=== PATIENT | male | born 1950 | race Caucasian/White ===

== ENCOUNTER 2017-01-06 19:42 | Inpatient (IN) ==
[2017-01-06] MEDS ORDERED: Nitroglycerin 1,000 MCG/10 ML VIAL IV ONE (20:12)
[2017-01-06] MEDS ORDERED: *HR* FentaNYL (PF) 250 MCG/5 ML VIAL ONE (20:12)
[2017-01-06] MEDS ORDERED: 0.9 % Sodium Chloride 1,000 ML ONE ×2 (20:12→20:19)
[2017-01-06] MEDS ORDERED: *HR* Midazolam HCl 5 MG/5 ML VIAL IVP ONE (20:12)
[2017-01-06] MEDS ORDERED: *HR* Heparin 10,000 UNIT/10 ML VIAL ONE (20:12)
[2017-01-06] MEDS ORDERED: Heparin 1,000 UNITS/500 mL NS 500 ML ONE ×2 (20:12→21:10)
[2017-01-06] MEDS: Amiodarone Premix 360 MG/200 ML BAG IVC ONE (20:21)
[2017-01-06] MEDS: Norepinephrine 4 MG in D5% in Water 250 ML IVC SCH (20:27)
--- NOTE | 2017-01-06 20:42 | Emergency Department Note ---
Disposition Clinical Impression: Cardiac arrest ST elevation myocardial infarction (STEMI) Qualifiers: Involved coronary artery: unspecified coronary artery Qualified Code(s): I21.3 - ST elevation (STEMI) myocardial infarction of unspecified site Disposition: Admitted As Inpatient Condition: Critical Time of Disposition: 22:48 CPR HPI - General Stated Complaint: Felling Sick /CP x 3 days Time Seen by Provider: 01/06/17 20:05 Source: patient Limitations: no limitations Nursing Notes Reviewed: Yes Vital Signs Reviewed: Yes - History of Present Illness HPI Narrative: History of present illness obtained from nursing note as below: Stemi on 12 lead. Patient became unresponsive once placed in bed. Prior to this, he reported no cardiac history. His chest pain began 3 days ago and became 10/10 with jaw numbness while driving to this facility. - Related Data Allergies Allergy/AdvReac Type Severity Reaction Status Date / Time Penicillins Allergy Hives Verified 01/06/17 19:56 Limitations: ROS unobtainable due to patients medical condition CPR PMH - Past Medical History Medical history: Reports: other - Social History Smoking Status: Unknown if ever smoked Physical Exam - General Limitations: other (Patient in cardiac arrest.) Course Course Narrative: Patient cool, diaphoretic, in V. fib. CPR started in cardiac arrest code initiated per ACLS protocol. Patient wondered and out of V. fib total of 4 defibrillator shocks, 2 rounds of epinephrine, 1 round of lidocaine, 1 round of amiodarone, 2 L normal saline under pressure bag. He was intubated with etomidate and succinylcholine and re- paralyzed with rocuronium. A right insula jugular triple-lumen central venous catheter was placed under ultrasound guidance. Patient left the [employer] with a lidocaine drip. Vital Signs Temperature 0 F L 01/06/17 20:04 Pulse Rate 0 01/06/17 20:04 Respiratory Rate 0 01/06/17 20:04 Blood Pressure 0/0 01/06/17 20:04 O2 Sat by Pulse Oximetry 0 01/06/17 20:04 Temperature 97.7 F 01/07/17 00:00 Pulse Rate 90 01/07/17 02:00 Respiratory Rate 18 01/07/17 02:00 Blood Pressure 98/63 01/07/17 02:00 O2 Sat by Pulse Oximetry 97 01/07/17 02:00 Oxygen Delivery Oxygen Delivery Room Air Procedures - Central Line Placement Right IJ Central Line Inserted*: Yes Central Line Catheter Replacement*: No Central Line Insertion: emergent Consent Obtained: verbal consent (Patient in code, no family bedside.) Patient Placed on Monitor/Pulse Ox: Yes During the Procedure: clinician is wearing sterile gloves, cap, mask,& gown during insertion, sterile field and sterile technique are maintained Central Line Prep: Chlorhexidine scrub Prep the Procedure Site: apply chloraprep to the skin using a back and forth scrubbing motion Amount of anesthesia used (mL): 0 Ultrasound Used for Placement: Yes Central Line Lumen Inserted: triple Post Procedure: sutured in place, good blood return, all ports aspirated, flushed, capped, sterile dressing applied, guide wire removed and visualized Post Procedure X-Ray: other (Patient rushed to molder labels; no post-placement imaging.) Patient Tolerated Procedure: well, no complications Complications: none Cardiac Arrest/CPR - Lab Data Lab results reviewed: Yes I reviewed the patient's lab results. Result diagrams: 01/06/17 21:14 01/06/17 21:14 - EKG Data EKG attestation: Yes I reviewed and interpreted this EKG. EKG results narrative: EKG dated 01/06/[address] elevations in inferiolateral leads as well as septal leads. Tachycardic with a rate of 128. EKG was not compared to previous due to the acuity of the patient's condition. Critical Care Time Critical Care Time: Yes Total Critical Care Time: 60 Attestation: Critical care performed: Time is exclusive of separately billable procedures. Time includes: direct patient care, patient reassessment, coordination of patient care, interpretation of data (laboratory data, radiology data, and respiratory data), review of patient's medical records, medical consultation and documentation of patient care. Procedures included in critical care time: CPR Procedures excluded from critical care time: Endotracheal intubation, right IJ central line placement Attestation Statement - Attestation Attestation: IValerio MD, personally evaluated this patient and discussed their management with the resident physician. I reviewed the resident's note and agree with the documented findings, medical decision making, and plan of care. A 66-year-old male presented to the emergency Department by private vehicle with a complaint of just feeling sick. In triage he then reported that he has been having chest pains for the past 3 days and is now having severe substernal chest pain which started about 15 minutes prior to arrival. He denies any radiation of the pain but complains that his left jaw feels numb. He admits to shortness of breath. Some mild diaphoresis. He denies any prior history of an OR or any heart problems in the past. Patient had an EKG in triage which showed a STEMI with extensive infarction. There is inferior, Cipro, and anterolateral ST elevations. I will directly back to the emergency department and while we were initiating an IV and hooking him up to the monitor patient became unresponsive and went into ventricular fibrillation. CPR initiated immediately. Patient defibrillated multiple times. He received IV epinephrine. He also received IV lidocaine and IV amiodarone and was placed on an amiodarone drip. Patient did regain a pulse after multiple defibrillations. He was placed on norepinephrine infusion. Patient received etomidate and succinylcholine and was intubated by then physician Dr. Sheets. A right IJ central line was placed by resident physician Dr. Manzano. The waste collection driver, Dr. Marin, was present during the cardiac arrest. A STEMI alert had been called as soon as patient was brought back into the main ED before he arrested. After resuscitation and stabilization the patient was taken directly to the cardiac catheter lab by Dr. Marin. On physical examination on arrival prior to cardiac arrest patient is a well- developed well-nourished male in moderate distress. He is alert and oriented but appears very anxious. He is pale and mildly clammy. Her equal bilaterally. Heart regular rate and rhythm. Abdomen soft with normal bowel sounds.
[2017-01-06] MEDS ORDERED: Tirofiban 12.5 MG/250ML 12.5 MG/250 ML BAG ONE (20:48)
[2017-01-06] MEDS ORDERED: Amiodarone Premix 150 MG/100 ML BAG IVPB ONE (21:07)
--- NOTE | 2017-01-06 21:13 | Emergency Department Note ---
Disposition Clinical Impression: Cardiac arrest ST elevation myocardial infarction (STEMI) Qualifiers: Involved coronary artery: unspecified coronary artery Qualified Code(s): I21.3 - ST elevation (STEMI) myocardial infarction of unspecified site Disposition: Admitted As Inpatient Condition: Critical General Adult HPI - General Chief complaint: ED Chest Pain Stated complaint: Felling Sick /CP x 3 days Time Seen by Provider: 01/06/17 20:05 Source: patient Limitations: no limitations - History of Present Illness HPI Narrative: This note is being done for procedure purpose only. Pain Scale: 0 - Related Data Allergies Allergy/AdvReac Type Severity Reaction Status Date / Time Penicillins Allergy Hives Verified 01/06/17 19:56 Past Medical History - Past Medical History Medical history: Reports: other - Social History Smoking Status: Unknown if ever smoked Physical Exam - General Limitations: no limitations General appearance: alert Course Vital Signs Temperature 0 F L 01/06/17 20:04 Pulse Rate 0 01/06/17 20:04 Respiratory Rate 0 01/06/17 20:04 Blood Pressure 0/0 01/06/17 20:04 O2 Sat by Pulse Oximetry 0 01/06/17 20:04 Temperature 97.7 F 01/07/17 00:00 Pulse Rate 90 01/07/17 02:00 Respiratory Rate 18 01/07/17 02:00 Blood Pressure 98/63 01/07/17 02:00 O2 Sat by Pulse Oximetry 97 01/07/17 02:00 Oxygen Delivery Oxygen Delivery Room Air Procedures - Intubation Time out performed: No sedative: Etomidate Mg Given: 20 paralytic: Succinylcholine Mg Given: 100 Laryngoscope: fiber optic video scope ET Tube Size: 7.5 ET Tube Uncuffed: Yes Tube Secured Depth (cm): 24 Tube Secured Location: lips Tube Placement Confirmation: visualized tube passing through cords, equal breath sounds bilaterally, no breath sounds over epigastrium, confirmation by capnometry Patient Tolerated Procedure: well, no complications Intubation Complications: difficult intubation (Very anterior cords needed to use video laryngoscopy.) Medical Decision Making - MDM Narrative Medical decision making narrative: This note was being done for intubation procedure only. - Lab Data Result diagrams: 01/06/17 21:14 01/06/17 21:14 Attestation Statement - Attestation Attestation: IValerio MD, personally evaluated this patient and discussed their management with the resident physician. I reviewed the resident's note and agree with the documented findings, medical decision making, and plan of care. A 66-year-old male presented to the emergency Department by private vehicle with a complaint of just feeling sick. In triage he then reported that he has been having chest pains for the past 3 days and is now having severe substernal chest pain which started about 15 minutes prior to arrival. He denies any radiation of the pain but complains that his left jaw feels numb. He admits to shortness of breath. Some mild diaphoresis. He denies any prior history of an AL or any heart problems in the past. Patient had an EKG in triage which showed a STEMI with extensive infarction. There is inferior, Cipro, and anterolateral ST elevations. I will directly back to the emergency department and while we were initiating an IV and hooking him up to the monitor patient became unresponsive and went into ventricular fibrillation. CPR initiated immediately. Patient defibrillated multiple times. He received IV epinephrine. He also received IV lidocaine and IV amiodarone and was placed on an amiodarone drip. Patient did regain a pulse after multiple defibrillations. He was placed on norepinephrine infusion. Patient received etomidate and succinylcholine and was intubated by then physician Dr. Sheets. A right IJ central line was placed by resident physician Dr. Manzano. The finishing technician, Dr. Marin, was present during the cardiac arrest. A STEMI alert had been called as soon as patient was brought back into the main ED before he arrested. After resuscitation and stabilization the patient was taken directly to the cardiac catheter lab by Dr. Marin. On physical examination on arrival prior to cardiac arrest patient is a well- developed well-nourished male in moderate distress. He is alert and oriented but appears very anxious. He is pale and mildly clammy. Her equal bilaterally. Heart regular rate and rhythm. Abdomen soft with normal bowel sounds.
[2017-01-06 21:18] LABS: ABG Base Excess -15 mEq/L (-2 to 3); ABG HCO3 17 mEq/L (21-27); ABG Oxygen Saturation 99 % (95-98); ABG PCO2 63 mmHg (35-45); ABG PH 7.03 pH Units (7.32-7.45); ABG PO2 207 mmHg (85-104); ABG TCO2 19 mEq/L (20-26)
[2017-01-06] MEDS ORDERED: Heparin 25,000 UNIT/500 ML D5W 25,000 UNIT/500 ML MLS IVC ONE (21:22)
[2017-01-06 21:23] LABS: Basophils # 0.2 K/mcL (0.0-0.2); Basophils % 0.6 %; Eosinophils % 0.2 %; Hematocrit 38.1 % (37.5-50.1); Immature Granulocytes % 2.3 % (0-4); Lymphocytes % 11.8 %; Mean Corpuscular HGB Conc 34.1 g/dL (31.6-35.5); Mean Corpuscular Hemoglobin 30.9 pg (28.0-33.3); Mean Corpuscular Volume 90.5 fL (83.0-100.0); Mean Platelet Volume 10.3 fL (9.4-12.4); Monocytes % 5.4 %; Platelet Count 246 K/mcL (140-400); Red Blood Count 4.21 M/mcL (4.19-5.50); Red Cell Distribution Width 13.2 % (11.5-14.5); Segmented Neutrophils % 79.7 %
[2017-01-06 21:24] LABS: Eosinophils # 0.1 K/mcL (0.0-0.6); Monocytes # 1.4 K/mcL (0.0-1.3); Neutrophils # 19.9 K/mcL (1.6-8.9)
[2017-01-06 21:35] LABS: BUN/Creatinine Ratio 16 (6-26); Blood Urea Nitrogen 22 mg/dL (8-26); Calcium 7.1 mg/dL (8.6-10.8); Carbon Dioxide 18 mEq/L (19-29); Chloride 103 mEq/L (98-109); Glucose 310 mg/dL (70-99); Magnesium 1.4 mg/dL (1.6-2.6); Osmolality,Calculated 289 (280-300); Potassium 3.8 mEq/L (3.5-4.5); Sodium 132 mEq/L (136-145); eGFR For African Americans > 60 (> 60); eGFR For Non-African Americans 54 (> 60)
[2017-01-06 21:42] LABS: Platelet Estimate Normal (Normal)
--- NOTE | 2017-01-06 21:46 | Cardiology History & Physical ---
Date of Encounter: 01/06/17 Time of Encounter: 21:41 Assessment and Plan (1) ST elevation (STEMI) myocardial infarction involving left anterior descending coronary artery Current Visit: Yes Status: Acute The assessment and plan as outlined above was discussed with the patient and/or family members who expressed understanding and agreement. All questions were answered. Anterior STEMI with cardiogenic s/p PCI of the LAD on IABP and on levophed and amiodarone, guarded prognosis, ECHO in AM History of Present Illness Chief complaint: Sudden cardiac HPI: Mr. Cristina is a 66 year old male presents to the ED with Chest pain started 30 minutes prior to arrival. Patient arrested in the ED with Vfib arrest. After extensive CPR in the ED patient recovered a pulse and was taken to cathlab. Patient sedated on the Vent hence history obtained through chart review. Patient placed on Levophed, amiodarone drip in cardiogenic shock. Past Med Surg Social Fam HX - Past Medical History Medical history: other - Social History Smoking Status: Unknown if ever smoked Medications and Allergies 3 Allergy/AdvReac Type Severity Reaction Status Date / Time Penicillins Allergy Hives Verified 01/06/17 19:56 All Systems Review: A 10-system review of systems was performed and is negative for pertinent findings except as documented above in the HPI. Physical Examination Neuro: Other (sedated on the vent) Extremities: Other (mottled) Results 01/06/17 21:14 01/06/17 21:14 Lab Results 01/06/17 01/06/17 21:14 21:14 WBC 25.0 H Hgb 13.0 Hct 38.1 Plt Count 246 Sodium 132 L Potassium 3.8 Chloride 103 Carbon Dioxide 18 L BUN 22 Creatinine 1.34 H Glucose 310 H Calcium 7.1 L Magnesium 1.4 L
[2017-01-06] MEDS ORDERED: Ondansetron 4 MG/2 ML VIAL IVP PRN (21:50)
[2017-01-06] MEDS ORDERED: *HR* Ticagrelor 90 MG TABLET PO ONE (21:50)
[2017-01-06] MEDS ORDERED: Magnesium Sulfate 1 GM in D5% in Water 100 ML IVPB ONE (21:50)
[2017-01-06] MEDS ORDERED: Tirofiban 12.5 MG/250ML 12.5 MG/250 ML BAG IVC SCH (22:00)
[2017-01-06] MEDS ORDERED: *HR* Midazolam HCl 2 MG/2 ML VIAL ONE (22:17)
[2017-01-06] MEDS ORDERED: *HR* FentaNYL (PF) 100 MCG/2 ML VIAL ONE (22:18)
--- NOTE | 2017-01-06 22:34 | Invasive Diagnostic Lab Proc ---
Name: Cayden Cristina Date of Study: 01/06/2017 Date: 1950 Ht: 70.1in Medical Record#: [id number] Age: 66 Wt: 220.46lb Gender: Male BSA: 2.18 Order #: [id number] BMI: 31.56 Physicians Procedure Physician: Heather Marin MD Referring MD: Referring MD: Staff Name Position Time In Shahid Mott RT (R) Scrub 08:27 PM Xenia Brynn RT (R) Monitor 08:27 PM Henry Donald RN Rat Breeder 08:27 PM Indications Indication STEMI Procedures Performed Procedure PRQ CARD REVASC ME 1 VSL IABP INSERTION, PERCUTANEOUS Pre-Procedure Checklist Informed consent is complete signed and on chart. H&P is on chart. ID band is on and ID verified with patient. Pt not NPO for procedure and MD aware. The procedure was described for the patient and questions were answered. Blood Pressure: 172/119 ECG is on chart. Rhythm: Sinus Tachycardia Plan of Care Patient will tolerate the procedure without complications. Adequate level of comfort will be maintained. Hemodynamics will remain stable Patient will recover from procedure without complications. Respiratory function will be maintained. Cardiac rhythm will remain stable. Patient temperature will be maintained. Patient and/or family have verbalized understanding of the procedure. Patient Education Intravenous Access Time IV Size Location DC'd Fluid/Drip Rate Units RN 08:41 PM 18g 1 1/4" Patent On Arrival Rt Antecubital 08:41 PM 18g 1 1/4" Patent On Arrival Lt Arm 08:41 PM Venous access port Rt Jugular Allergies Penicillins Vital Signs Time BP (mmHg) HR (bpm) O2 Sat. RR (bpm) LOC 09:08 PM / % 0 = No reflexes elicited 09:24 PM / % 0 = No reflexes elicited 09:22 PM 135 / 84 125 100 % 33 09:27 PM 127 / 87 98 96 % 37 09:32 PM 143 / 124 123 100 % 28 09:38 PM 123 / 69 123 100 % 27 09:42 PM 126 / 72 77 100 % 21 08:42 PM 172 / 119 155 % 1 08:47 PM 156 / 107 142 100 % 26 08:51 PM 136 / 91 137 100 % 14 08:55 PM 94 / 76 118 100 % 19 08:57 PM 122 / 91 109 100 % 31 09:01 PM 114 / 82 124 100 % 30 09:06 PM 107 / 79 109 100 % 21 09:11 PM 120 / 90 130 100 % 25 09:16 PM 113 / 91 106 100 % 24 Procedural Medications Time Medication Dose Units Method Given By 08:48 PM Heparin 5000 units Intravenous Henry Donald RN 08:50 PM Aggrastat Bolus: 15 ml Intravenous Henry Donald RN 09:00 PM Aggrastat 12.5mg/250ml 18 ml/hr Intravenous Henry Donald RN 09:08 PM Amiodarone 150 mg Intravenous Henry Donald RN 09:22 PM Sodium Bicarbonate 1 amp Intravenous Henry Donald RN 09:27 PM Heparin 1400 units/hr Intravenous Henry Donald RN 08:41 PM Lidocaine 2% 10 ml Subcutaneous Heather Marin MD 09:30 PM Versed 2 mg Intravenous Henry Donald RN 08:40 PM Levophed 17.5 mcg/min Intravenous 08:40 PM Amiodarone 0.5 mg/min Intravenous 08:42 PM Epinephrine 0.5 mg Intravenous Henry Donald RN 09:50 PM Aspirin (300mg) 300 mg Rectally Henry Donald RN ASA Classification: CLASS IV- Severe systemic that is constant threat to patient's life Emergent Procedure: ASA score is assumed Carol Score Preprocedure Postprocedure Activity 0- Unable to move extremities or lift head Activity 0- Unable to move extremities or lift head Circulation 2- SBP +/= 20 points of pre-anesthetic level Circulation 2- SBP +/= 20 points of pre-anesthetic level Consciousness 0- Non-responsive Consciousness 0- Non-responsive O2 Saturation 1- Needs O2 inhalation to maintain O2 saturation of 90% O2 Saturation 1- Needs O2 inhalation to maintain O2 saturation of 90% Respiratory 0- Apneic requires ventilator or assisted respiration Respiratory 0- Apneic requires ventilator or assisted respiration Total Score 3 Total Score 3 Contrast Agent: Isovue Diagnostic Contrast: 227 ml Total Contrast: 227 ml Fluoro Dose: 733 mGy Activated Clotting Time Time Seconds to Clot 09:06 PM 265 08:58 PM 400 Procedure Log Time Note Enter By 08:27 PM Shahid Mott RT (R) Position: Scrub Time in: 20:27 csmith 08:27 PM Brynn Michaels RT (R) Position: Monitor Time in: 20:27 csmith 08:28 PM Henry Donald RN Position: Rat Breeder Time in: 20:27 csmith 08:28 PM Physician arrived 20:28 [facility] 08:31 PM Clinical Presentation: STEMI or equivalent [facility] 08:31 PM Patient charges- Angio tray pack, Navilyst 3mm J, Pulse Oximetry and ACIST [facility] PM IV Supplies used: J loop Angio Cath. [facility] 08:31 PM Case Delayed No [facility] 08:[address] upon arrival Mechanical ventilator [facility] 08:40 PM Patient arrived at 20:40 with Levophed Intravenous drip @ 17.5 mcg/min [facility] 08:40 PM Pt arrived to [facility] 2 at 20:40 [facility] 08:41 PM Procedure start 20: [facility] 08:41 PM Time: 20:41 10 ml Lidocaine 2% to right groin Subcutaneous Given by Heather Marin MD [facility] 08:41 PM Time out performed according to hospital policy [facility] 08: PM Case Start 08:41 PM CathStat 08:41 PM Vitals capture started with the following parameters, Patient=Adult, Interval=5 min, Initial Quasnfhr=144 mmHg, Deflation Rate=5 mmHg, Cuff placed on Right Arm 08:42 PM Time: : Epinephrine 0.5 mg Intravenous Given by Henry Donald RN [facility] 08:42 PM MH=521 bpm, HFMC=537/119 mmhg, Resp=1 B/min 08:43 PM Access obtained by percutaneous puncture. 5Fr 10cm Terumo [place] sheath placed in Right Femoral artery. [id number] [facility] 08:44 PM 6Fr XB LAD 3.5 Cordis guide catheter was used to cannulate the PCI vessel successfully. reused? No [facility] :44 PM .014 [employer] Pisek 190cm guide wire across target lesion- successful. reused? No [facility] 08:44 PM Recorded Pressure: Ao, FS=128, Condition=Condition 1 (Aorta) Ao 113/101/107 08:46 PM PCI Status Emergency [facility] 08:46 PM PCI Indication: Immediate PCI for STEMI [facility] 08:47 PM TD=884 bpm, THQA=048/107 mmhg, LdB2=474 %, Resp=26 B/min 08:47 PM 2.0 mm x 14 mm Emerge Monorail balloon across target lesion- successful. reused? No [facility] 08:47 PM Recorded Pressure: Ao, YX=071, Condition=Condition 1 (Aorta) Ao 112/95/104 08:47 PM Balloon inflated @ 6 rachana for 5 seconds dspellman 08:48 PM Balloon inflated @ 6 rachana for 4 seconds dspell 08:48 PM Time: 20:48 Heparin 5000 units Intravenous Given by Henry Donald RN dspashley 08:49 PM Balloon catheter removed intact. dspell 08:50 PM 2.0 x 14 Balloon inserted over the wire dspell 08:50 PM Balloon inflated @ 6 rachana for 3 seconds dspell 08:50 PM Time: 20:50 Aggrastat Bolus: 15 ml Intravenous Given by Henry Donald RN Johnson pump dspell 08:51 PM Balloon inflated @ 6 rachana for 5 seconds dspell 08:51 PM NIBP STAT measurement started. 08:51 PM Balloon catheter removed intact. dspell 08:51 PM SM=328 bpm, PJZZ=634/91 mmhg, FwS4=953 %, Resp=14 B/min 08:52 PM 3.5mm x 24mm Synergy drug-eluting stent across target lesion- successful Lot #[id number] dspell 08:53 PM Stent deployed @ 11 rachana for 6 seconds dspell 08:53 PM Recorded Pressure: Ao, UI=668, Condition=Condition 1 (Aorta) Ao 89/76/83 08:53 PM Stent balloon reinflated @ 16 rachana for 6 seconds dspell 08:54 PM Stent delivery system removed intact. dspell 08:54 PM NIBP STAT measurement started. 08:55 PM HG=115 bpm, NIBP=94/76 mmhg, FuH9=830 %, Resp=19 B/min 08:55 PM Recorded Pressure: Ao, PW=222, Condition=Condition 1 (Aorta) Ao 88/71/80 08:57 PM IM=007 bpm, KLQV=659/91 mmhg, YlS5=250 %, Resp=31 B/min 08:57 PM ACT drawn dspell 08:58 PM At 20:58 the ACT was >400 seconds. dspell 08:58 PM Recorded ECG: NW=645 Condition=Condition 1 09:00 PM Time: 21:00 Aggrastat 12.5mg/250ml 18 ml/hr Intravenous Given by Henry Donald RN Johnson pump dspell 09:01 PM GU=236 bpm, MHOF=814/82 mmhg, EaT9=791 %, Resp=30 B/min 09:03 PM LCA angiography performed in multiple views. dspell 09:03 PM Coronary Dominance: Left dspell 09:04 PM 2.75mm x 8mm Synergy drug-eluting stent across target lesion- successful Lot #[id number] dspell 09:04 PM Stent deployed @ 11 rachana for 3 seconds dspell 09:05 PM Stent balloon reinflated @ 16 rachana for 3 seconds dspell 09:05 PM Stent balloon reinflated @ 16 rachana for 4 seconds dspell:06 PM Stent delivery system removed intact. dspell 09:06 PM Guide wire removed intact. dspell: PM At 21:06 the ACT was 265 seconds. dspell 09:06 PM TH=744 bpm, WFDF=541/79 mmhg, RlI1=785.0 %, Resp=21 B/min 09:08 PM Time: 21:08 Amiodarone 150 mg Intravenous Given by Henry Donald RN [facility] 09:08 PM Time: 21:08 Patient comfortable and pain free: Yes dsp: PM Time: 21:08LOC: 0 = No reflexes elicited dspell: PM 5Fr FR 4 catheter inserted over the wire [facility] : PM RCA angiography performed in multiple views. ell: PM [facility] 5[facility] Pigtail catheter inserted over the wire [facility] : PM Catheter selectively placed in left ventricle dspell 09:10 PM Recorded Pressure: LV, DE=994, Condition=Condition 1 (Left Ventricle) LV 91/35/41 09:11 PM Recorded Pressure: LV, FG=678, Condition=Condition 1 (Left Ventricle) LV 80/30/37 09:11 PM Recorded Pressure: LV, Ao, HR=90, Condition=Condition 1 (Left Ventricle) LV 468/420/468, (Aorta) Ao 88/56/71 09:11 PM Bolus angiogram of left Ventricle complete: 10 ml/sec for a total of 30 mls dspell 09:11 PM Catheter removed dspell 09:11 PM YQ=122 bpm, FTYE=392/90 mmhg, KeZ5=074.0 %, Resp=25 B/min 09:16 PM BR=552 bpm, QEUX=720/91 mmhg, MaE5=991 %, Resp=24 B/min 09:18 PM 8 Fr Maquet Balloon Pump IABP catheter inserted into right Femoral artery, 50 cc, *ACC* catheter inserted 1 :18 PM PCI lesion in Ostial LAD. Pre Stenosis: 100 Pre ED Flow: 0: No Flow/No perfusion :20 PM IABP Settings: 1:1 ratio Pressure trigger : PM Time: 21:22 Sodium Bicarbonate 1 amp Intravenous Given by Henry Donald RN : PM IP=533 bpm, AAOS=152/84 mmhg, XaD9=428.0 %, Resp=33 B/min 09:23 PM IABP sheath sutured to skin : PM IABP Augmented pressure, mean: 101 : PM IABP Systemic BP: 111/78 :24 PM IABP in Standby mode : PM IABP resumed inflations : PM Procedure completed at 21:26 :27 PM HR=98 bpm, KNKV=056/87 mmhg, SpO2=96.0 %, Resp=37 B/min 09:28 PM Time: 21:27 Heparin 1400 units/hr Intravenous Given by Henry Donald RN 09:30 PM Time: 21:30 Versed 2 mg Intravenous Given by Henry Donald RN 09:32 PM ET=113 bpm, IFEL=075/124 mmhg, MyH5=541.0 %, Resp=28 B/min 09:33 PM Patient arrived at 20:40 with Amiodarone Intravenous drip @ 0.5 ml/min 33 PM Recorded ECG: OJ=529 Condition=Condition 1 09:38 PM ES=322 bpm, WZOT=747/69 mmhg, SjG5=208 %, Resp=27 B/min 09:39 PM Time: 21:24 Patient comfortable and pain free: Yes :40 PM Time: 21:24LOC: 0 = No reflexes elicited :40 PM Placed OG tube, measures 27cm at lip line :42 PM HR=77 bpm, LZND=418/72 mmhg, ElG6=613 %, Resp=21 B/min 09:42 PM Post Blood Pressure 126/72 09:50 PM Time: 21:50 Aspirin (300mg) 300 mg Rectally Given by Henry Donald RN dspell 09:53 PM Patient out of room: 21:53 dspell 09:53 PM Report given to Shabnam RASHID Pt taken to ICU Room #9. 21:53 dspellman 09:53 PM Site status No bleeding/hematoma - Rt Groin as reported by Shahid Mott RT (R) at 21:53 dspell 09:53 PM Opsite applied dspell 09:54 PM Family placed in consult room. dspell 09:54 PM Complications: None dspell 09:54 PM Fluoro Time: 8.2 dspell 09:54 PM Isovue 370 - 200ml contrast 227 ml given by Heather Marin MD. dspell 09:54 PM Radiation Dose 733.48 mGy dspell 09:54 PM 21:54 Post Pulses Bilateral DP & PT Doppler dspell 09:54 PM Time: 21:39 Patient comfortable and pain free: Yes dspell 09:55 PM Post ECG Sinus Tachycardia dspell 09:55 PM Information taught Unable, Pt on vent dspell 09:56 PM Education needs unable to access dspellman 09:56 PM Learning barriers :Sedated dspellman 09:56 PM Education evaluation Other dspellman 10:12 PM Lesion found in 1st Diagonal. Pre Stenosis: 100 Pre ED Flow: 0: No Flow/No perfusion dspellman 10:13 PM Lesion found in Mid RCA. Pre Stenosis: 25 Pre ED Flow: 3: Complete and Brisk Flow/Perfusion dspellman 10:13 PM Proximal Left Anterior Descending Coronary Artery with 100% stenosis. If graft is supplying this territory, 0 % stenosis. dspellman 10:13 PM Right Coronary, Right Posterior Descending Arteries with Right Posterolateral and Acute Marginal branches with 25 % stenosis. If graft is supplying this area, 0 % stenosis [facility] Complications Complication None Hemodynamics Pressures Site Systolic/A Wave Diastolic/V Wave Mean AO 113 101 107 AO 112 95 104 AO 89 76 83 AO 88 71 80 LV 91 35 41 LV 80 30 37 LV 468 420 468 AO 88 56 71 Post Procedure Information Blood Pressure: 126/72 mmHg Rhythm: Sinus Tachycardia Post procedural instructions were given Site Checks Time Location Status Staff Sheath In? Note 09:53 PM Rt Groin No bleeding/hematoma Shahid Mott RT (R) Yes IABP Pulses Time Site Pre-Procedure Post-Procedure Note 9:54:00 PM Bilateral DP & PT Doppler Updated by RT Vivian (R) on 01/06/2017 10:28:05 PM RT Vivian electronically signed on 01/06/2017 10:28:50 PM with status of Final
[2017-01-06] MEDS ORDERED: FentaNYL (PF) 1,000 MCG in 0.9 % Sodium Chloride 80 ML IVC SCH (22:45)
[2017-01-06 23:13] LABS: Albumin 3.4 g/dL (3.5-5.0); Albumin/Globulin Ratio 1.2 (1.1-2.2); Bilirubin,Direct 0.3 mg/dL (0.0-0.5); Bilirubin,Indirect 0.2 mg/dL (0.0-1.2); Bilirubin,Total 0.5 mg/dL (0.2-1.2); Globulin 2.8 g/dL (2.4-3.5); Total Protein 6.2 g/dL (6.0-8.3)
[2017-01-06 23:26] LABS: INR 1.1; Prothrombin Time 12.4 Seconds (9.4-12.1)
[2017-01-06 23:34] LABS: Thyroid Stimulating Hormone 1.142 mcIU/mL (0.350-4.840)
[2017-01-06 23:41] LABS: Activated Partial Thrombo Time 114.3 Seconds (26.0-36.0)
[2017-01-07 00:01] LABS: Heparin anti-factor XA UFH 0.89 IU/mL (0.30-0.70)
[2017-01-07] MEDS ORDERED: *HR* Heparin 5,000 UNIT/ML VIAL IVP PRN ×2 (00:18)
[2017-01-07] MEDS ORDERED: *HR* EPINEPHrine 1 MG/10 ML SYRINGE IVP ONE ×2 (00:21)
[2017-01-07] MEDS ORDERED: Lidocaine 2% Syringe 100 MG/5 ML IVP ONE (00:22)
[2017-01-07] MEDS ORDERED: Amiodarone Premix 150 MG/100 ML BAG IVPB ONE (00:24)
[2017-01-07] MEDS ORDERED: 0.9 % Sodium Chloride 1,000 ML IVC ONE ×2 (00:24→00:25)
[2017-01-07] MEDS ORDERED: *HR* Etomidate 40 MG/20 ML VIAL IVP ONE (00:25)
[2017-01-07] MEDS ORDERED: *HR* Rocuronium Bromide 50 MG/5 ML VIAL IVP ONE (00:26)
[2017-01-07] MEDS ORDERED: *HR* Succinylcholine 200 MG/10 ML VIAL IVP ONE (00:26)
[2017-01-07] MEDS ORDERED: Amiodarone 150 MG in D5% in Water 100 ML IVPB ONE (00:27)
[2017-01-07] MEDS ORDERED: Norepinephrine 4 MG in D5% in Water 250 ML IVC SCH (00:30)
[2017-01-07] MEDS ORDERED: Amiodarone 360 MG in D5% in Water 200 ML IVPB ONE (00:40)
[2017-01-07 02:57] LABS: Basophils # 0.1 K/mcL (0.0-0.2); Basophils % 0.2 %; Hematocrit 41.5 % (37.5-50.1); Hemoglobin 14.5 g/dL (12.9-16.9); Immature Granulocytes % 1.2 % (0-4); Immature Platelets 6.7 % (1.1-6.1); Lymphocytes # 1.9 K/mcL (0.6-4.6); Lymphocytes % 8.7 %; Mean Corpuscular HGB Conc 34.9 g/dL (31.6-35.5); Mean Corpuscular Hemoglobin 30.9 pg (28.0-33.3); Mean Corpuscular Volume 88.3 fL (83.0-100.0); Mean Platelet Volume 10.2 fL (9.4-12.4); Monocytes # 2.2 K/mcL (0.0-1.3); Monocytes % 9.9 %; Neutrophils # 17.4 K/mcL (1.6-8.9); Platelet Count 325 K/mcL (140-400); Red Cell Distribution Width 13.2 % (11.5-14.5)
[2017-01-07 03:11] LABS: BUN/Creatinine Ratio 16 (6-26); Blood Urea Nitrogen 21 mg/dL (8-26); Carbon Dioxide 24 mEq/L (19-29); Chloride 105 mEq/L (98-109); Chol/HDL Ratio 3.5 (0-4.9); Cholesterol 180 mg/dL (< 200); Glucose 143 mg/dL (70-99); HDL Cholesterol 52 mg/dL (40-59); LDL Cholesterol,Calculated 115 mg/dL (0-99); Magnesium 2.1 mg/dL (1.6-2.6); Osmolality,Calculated 289 (280-300); Potassium 4.4 mEq/L (3.5-4.5); Sodium 137 mEq/L (136-145); Triglycerides 63 mg/dL (< 150); eGFR For African Americans > 60 (> 60); eGFR For Non-African Americans 56 (> 60)
[2017-01-07 03:12] LABS: Calcium 8.3 mg/dL (8.6-10.8)
[2017-01-07] MEDS: Norepinephrine 4 MG in D5% in Water 250 ML IVC SCH (03:34)
[2017-01-07 04:15] LABS: Heparin anti-factor XA UFH 0.93 IU/mL (0.30-0.70)
[2017-01-07] MEDS: Amiodarone Premix 360 MG/200 ML BAG IVC ONE (07:11)
[2017-01-07] MEDS ORDERED: Perflutren Lipid Microsphere 1.3 ML in 0.9 % Sodium Chloride 8.7 ML IVP ONE (09:41)
[2017-01-07] MEDS: Heparin 25,000 UNIT/500 ML D5W 25,000 UNIT/500 ML MLS IVC SCH ×2 (10:33→23:05)
--- NOTE | 2017-01-07 10:49 | Pulmonology Consult Note ---
<Bob Mcmahon M - Last Filed: 01/07/17 11:27> Date of Encounter: 01/07/17 Medications and Allergies Albuterol Sulfate [Ventolin Hfa] 1 - 2 puff IH Q6H PRN 01/07/17 [History] RX: Lansoprazole [Prevacid] 30 mg PO DAILY 01/07/17 [History] RX: Lisinopril [Zestril] 10 mg PO DAILY 01/07/17 [History] Tamsulosin HCl [Flomax] 0.4 mg PO DAILY 01/07/17 [History] Umeclidinium Brm/Vilanterol Tr [Anoro Ellipta 62.5-25 Mcg INH] 1 puff IH DAILY 01/07/17 [History] 3 Allergy/AdvReac Type Severity Reaction Status Date / Time Penicillins Allergy Hives Verified 01/06/17 19:56 All Systems: A 10-system review of systems was performed and is negative for pertinent findings except as documented above in the HPI. Physical Examination Vital Signs: Vital Signs, Last 4 Hours Temp Pulse Resp BP Pulse Ox 01/07/17 10:58 98.8 F 85 20 102/59 97 01/07/17 10:00 82 20 100/56 96 01/07/17 09:00 84 12 99/51 97 01/07/17 08:47 97 01/07/17 08:33 20 01/07/17 08:18 14 01/07/17 08:00 81 18 105/62 96 01/07/17 07:49 18 97 Ventilator Settings Ventilator Settings: Ventilator Settings, Last 8 Hours Ventilator Mode CPAP Ventilator Mode VC+ Ventilator Mode VC+ Ventilator Mode VC+ Ventilator Mode VC+ Ventilator Mode VC+ Ventilator Mode VC+ Ventilator Tidal Volume 500 Setting Ventilator Tidal Volume 500 Setting Ventilator Tidal Volume 500 Setting Ventilator Tidal Volume 500 Setting Ventilator Tidal Volume 500 Setting Ventilator Respiratory Rate 14 Setting Ventilator Respiratory Rate 14 Setting Ventilator Respiratory Rate 14 Setting Ventilator Respiratory Rate 14 Setting Ventilator Respiratory Rate 14 Setting Ventilator Respiratory Rate 14 Setting Actual Respiratory Rate 23 Actual Respiratory Rate 20 Actual Respiratory Rate 16 Actual Respiratory Rate 17 Positive End Expiratory 4 Pressure Positive End Expiratory 4 Pressure Positive End Expiratory 4 Pressure Positive End Expiratory 4 Pressure Positive End Expiratory 4 Pressure Positive End Expiratory 4 Pressure Peak Inspiratory Airway 13 Pressure Peak Inspiratory Airway 18 Pressure Peak Inspiratory Airway 14 Pressure Peak Inspiratory Airway 15 Pressure Peak Inspiratory Airway 15 Pressure Peak Inspiratory Airway 16 Pressure Results - Laboratory Findings CBC and BMP: 01/07/17 02:50 01/07/17 02:50 ABG ABG pH 7.03 pH Units (7.32-7.45) L* 01/06/17 21:07 ABG pCO2 63 mmHg (35-45) H 01/06/17 21:07 ABG pO2 207 mmHg (85-104) H 01/06/17 21:07 ABG O2 Saturation 99 % (95-98) H 01/06/17 21:07 PT/INR, D-dimer PT 12.4 Seconds (9.4-12.1) H 01/06/17 22:45 Abnormal lab findings: Abnormal lab results WBC 21.8 K/mcL (4.3-11.1) H 01/07/17 02:50 Neutrophils # 17.4 K/mcL (1.6-8.9) H 01/07/17 02:50 Monocytes # 2.2 K/mcL (0.0-1.3) H 01/07/17 02:50 Immature Plt Fraction 6.7 % (1.1-6.1) H 01/07/17 02:50 PT 12.4 Seconds (9.4-12.1) H 01/06/17 22:45 Heparin Anti-Xa, Unfract 0.93 IU/mL (0.30-0.70) H 01/07/17 02:30 ABG pH 7.03 pH Units (7.32-7.45) L* 01/06/17 21:07 ABG pCO2 63 mmHg (35-45) H 01/06/17 21:07 ABG pO2 207 mmHg (85-104) H 01/06/17 21:07 ABG HCO3 17 mEq/L (21-27) L 01/06/17 21:07 ABG Total CO2 19 mEq/L (20-26) L 01/06/17 21:07 ABG O2 Saturation 99 % (95-98) H 01/06/17 21:07 ABG Base Excess -15 mEq/L (-2 to 3) L 01/06/17 21:07 Creatinine 1.30 mg/dL (0.72-1.25) H 01/07/17 02:50 Est GFR (Non-Af Amer) 56 (> 60) L 01/07/17 02:50 Glucose 143 mg/dL (70-99) H 01/07/17 02:50 POC Glucose 104 (58-89) H 01/07/17 11:01 Calcium 8.3 mg/dL (8.6-10.8) L D 01/07/17 02:50 AST 114 Units/L (5-34) H 01/06/17 22:45 ALT 87 Units/L (0-55) H 01/06/17 22:45 Albumin 3.4 g/dL (3.5-5.0) L 01/06/17 22:45 LDL Cholesterol, Calc 115 mg/dL (0-99) H 01/07/17 02:50 - Clinical Findings Intake & Output: Intake & Output 01/06/17 01/07/17 01/07/17 23:59 07:59 15:59 Intake Total 450 / 450 12 / 12 Output Total 1000 / 1000 500 / 500 200 / 200 Balance -1000 / 1100 -50 / -50 -188 / -188 Weight 84.2 kg Consult Discharge Plan - Plan Referrals: Jean-Paul Conn [Primary Care Provider] - - Attending Attestation I examined this patient and my medical decision-making was reviewed with the Resident Physician. I agree with the documented findings, disposition and treatment plan as described except to the extent set forth below. Patient seen and examined. Labs, radiology, chart personally reviewed. 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 Patient was awake and following commands and discussed with the learning coach first and then with a short spontaneous breathing trial because he did not want to stress him with the long spontaneous breathing trial, patient was successfully extubated. Patient was intubated after cardiac arrest for acute respiratory failure. Cardiovascular: Patient is being managed by her learning coach and he needs to stay in the intensive care unit for cardiac management and patient is on intra- aortic balloon pump. GI: Nutrition per dietary and GI prophylaxis per routine Heme: DVT prophylaxis per routine ID: Continue antibiotics and plan to de-escalation Renal; urine out put and renal funtion reviewed Endorcine: blood glucose is monitored Lines: all lines checked and no evidence of infections Skin: skin care to prevent pressure ulcers per nursing routine care Scuffs with the family at the bedside. <Lalit,Ynes - Last Filed: 01/07/17 13:30> Date of Encounter: 01/07/17 Time of Encounter: 10:49 Assessment and Plan (1) Cardiac arrest Current Visit: Yes Status: Acute Cardiac arrest in ED, sp s/p PCI of the LAD on IABP Patient developed acute respiratory failure following cardiac arrest (2) ST elevation (STEMI) myocardial infarction involving left anterior descending coronary artery Current Visit: Yes Status: Acute Anterior STEMI with cardiogenic s/p PCI of the LAD on IABP Monitoring patient's condition, Care per cardiology (3) Acute respiratory failure Current Visit: Yes Status: Resolved Patient intubated after cardiac arrest for acute respiratory failure. Reviewed CXR this AM- stable. Impression: no discernible pneumothorax. Clear lungs. Patient was successfully extubated following short spontaneous breathing trial to avoid undue stress O2 sat remains stable, will continue to monitor patient Discussed with attending Qualifiers: Respiratory failure complication: hypoxia Qualified Code(s): J96.01 - Acute respiratory failure with hypoxia History of Present Illness Consult date: 01/07/17 Requesting physician: Heather Marin Reason for consult: other (Acute Respiratory Failure ) Chief complaint: Anterior STEMI with cardiogenic s/p PCI of the LAD on IABP History of present illness: Mr. Cristina is a 66 year old male presents to the ED with Chest pain started 30 minutes prior to arrival. Patient arrested in the ED with Vfib. He is s/p CPR in the ED patient and cs/p PCI of the LAD on IABP. Patient was successfully extubated this morning. Past Med Surg Social Fam HX - Past Medical History Medical history: other - Social History Smoking Status: Unknown if ever smoked All Systems: A 10-system review of systems was performed and is negative for pertinent findings except as documented above in the HPI. - EENT Eyes: no loss of vision Ears: no decreased hearing - Cardiovascular Cardiovascular: as per HPI, other (soreness on chest (rates pain as 7/10, smiling)) - Respiratory Respiratory: no dyspnea, no wheezing - Gastrointestinal Gastrointestinal: no abdominal pain Physical Examination Vital Signs: Vital Signs, Last 4 Hours Temp Pulse Resp BP Pulse Ox 01/07/17 10:00 82 20 100/56 96 01/07/17 09:00 84 12 99/51 97 01/07/17 08:47 97 10/28/17 08:33 20 01/07/17 08:18 14 01/07/17 08:00 81 18 105/62 96 01/07/17 07:49 18 97 01/07/17 07:00 97.4 F L 79 16 99/62 96 General appearance: no acute distress Neck: supple, other (Right IJ central line in place ) Effort: normal Auscultation: bilateral: clear (anterior lung orellana ) Cardiovascular: regular rate and rhythm Gastrointestinal: normoactive bowel sounds, non-distended, other (no visible pulsations in abdomen) Extremities: no cyanosis non-focal exam mood appropriate, affect normal Ventilator Settings Ventilator Settings: Ventilator Settings, Last 8 Hours Ventilator Mode CPAP Ventilator Mode VC+ Ventilator Mode VC+ Ventilator Mode VC+ Ventilator Mode VC+ Ventilator Mode VC+ Ventilator Mode VC+ Ventilator Tidal Volume 500 Setting Ventilator Tidal Volume 500 Setting Ventilator Tidal Volume 500 Setting Ventilator Tidal Volume 500 Setting Ventilator Tidal Volume 500 Setting Ventilator Respiratory Rate 14 Setting Ventilator Respiratory Rate 14 Setting Ventilator Respiratory Rate 14 Setting Ventilator Respiratory Rate 14 Setting Ventilator Respiratory Rate 14 Setting Ventilator Respiratory Rate 14 Setting Actual Respiratory Rate 23 Actual Respiratory Rate 20 Actual Respiratory Rate 16 Actual Respiratory Rate 17 Positive End Expiratory 4 Pressure Positive End Expiratory 4 Pressure Positive End Expiratory 4 Pressure Positive End Expiratory 4 Pressure Positive End Expiratory 4 Pressure Positive End Expiratory 4 Pressure Peak Inspiratory Airway 13 Pressure Peak Inspiratory Airway 18 Pressure Peak Inspiratory Airway 14 Pressure Peak Inspiratory Airway 15 Pressure Peak Inspiratory Airway 15 Pressure Peak Inspiratory Airway 16 Pressure Results - Laboratory Findings CBC and BMP: 01/07/17 02:50 01/07/17 02:50 ABG ABG pH 7.03 pH Units (7.32-7.45) L* 01/06/17 21:07 ABG pCO2 63 mmHg (35-45) H 01/06/17 21:07 ABG pO2 207 mmHg (85-104) H 01/06/17 21:07 ABG O2 Saturation 99 % (95-98) H 01/06/17 21:07 PT/INR, D-dimer PT 12.4 Seconds (9.4-12.1) H 01/06/17 22:45 Abnormal lab findings: Abnormal lab results WBC 21.8 K/mcL (4.3-11.1) H 01/07/17 02:50 Neutrophils # 17.4 K/mcL (1.6-8.9) H 01/07/17 02:50 Monocytes # 2.2 K/mcL (0.0-1.3) H 01/07/17 02:50 Immature Plt Fraction 6.7 % (1.1-6.1) H 01/07/17 02:50 PT 12.4 Seconds (9.4-12.1) H 01/06/17 22:45 Heparin Anti-Xa, Unfract 0.93 IU/mL (0.30-0.70) H 01/07/17 02:30 ABG pH 7.03 pH Units (7.32-7.45) L* 01/06/17 21:07 ABG pCO2 63 mmHg (35-45) H 01/06/17 21:07 ABG pO2 207 mmHg (85-104) H 01/06/17 21:07 ABG HCO3 17 mEq/L (21-27) L 01/06/17 21:07 ABG Total CO2 19 mEq/L (20-26) L 01/06/17 21:07 ABG O2 Saturation 99 % (95-98) H 01/06/17 21:07 ABG Base Excess -15 mEq/L (-2 to 3) L 01/06/17 21:07 Creatinine 1.30 mg/dL (0.72-1.25) H 01/07/17 02:50 Est GFR (Non-Af Amer) 56 (> 60) L 01/07/17 02:50 Glucose 143 mg/dL (70-99) H 01/07/17 02:50 POC Glucose 257 (58-89) H 01/06/17 21:59 Calcium 8.3 mg/dL (8.6-10.8) L D 01/07/17 02:50 AST 114 Units/L (5-34) H 01/06/17 22:45 ALT 87 Units/L (0-55) H 01/06/17 22:45 Albumin 3.4 g/dL (3.5-5.0) L 01/06/17 22:45 LDL Cholesterol, Calc 115 mg/dL (0-99) H 01/07/17 02:50 - Clinical Findings Intake & Output: Intake & Output 01/06/17 01/07/17 01/07/17 23:59 07:59 15:59 Intake Total 450 / 450 12 / 12 Output Total 1000 / 1000 500 / 500 200 / 200 Balance -1000 / 1100 -50 / -50 -188 / -188 Weight 84.2 kg
[2017-01-07] MEDS: Aspirin 81 MG TAB.CHEW PO SCH (10:50)
--- NOTE | 2017-01-07 13:49 | Cardiology Progress Note ---
Date of Encounter: 01/07/17 Time of Encounter: 08:00 Assessment and Plan (1) ST elevation (STEMI) myocardial infarction involving left anterior descending coronary artery Current Visit: Yes Status: Acute The assessment and plan as outlined above was discussed with the patient and/or family members who expressed understanding and agreement. All questions were answered. Anterior STEMI with cardiogenic shock s/p v-fib arrest in the ED. S/p PCI of the LAD on IABP. Currently off pressor support. On amiodarone IV for v-fib. Will continue for 24 hours and convert to oral. Telemetry review shows NSR. There was one 15 beat run of NSVT. Will add beta-levi when able, currently on hold due to hypotension. Asa, brilinta, statin. Loaded with brilinta. Start brilinta 90 mg BID. Will need DAPT with asa and brilinta uninterrupted for minimum of one year. On heparin gtt for IABP. Discussed POC with Dr. Marin. Changes will be made to plan as needed. Continue IABP today. Pulmonology consulted for for ventilator management. Appreciate input . TTE pending. (2) Cardiac arrest Current Visit: Yes Status: Acute Discussion w patient/family: The assessment and plan as outlined above was discussed with the patient and/or family members who expressed understanding and agreement. All questions were answered. Thank you for involving us in the care of your patient. Please call with any questions. Subjective Principal diagnosis: STEMI Interval history: Patient awake and following commands. C/o reproducible chest discomfort. Likely due to CPR. Remains intubated but is starting weaning from ventilator. Objective Vital Signs, Last 4 Hours Temp Pulse Resp BP Pulse Ox 01/07/17 13:00 85 20 105/60 97 01/07/17 12:00 98.8 F 82 20 102/55 98 01/07/17 10:58 98.8 F 85 20 102/59 97 01/07/17 10:00 82 20 100/56 96 General: Other (intubated) HEENT: Atraumatic, Normocephaly, Mucus Membranes Moist Neck: No JVD, Normal carotid pulses Cardiac: Reg Rate and Rhythm, Normal S1 and S2, No Murmur, Other (IABP intact) Lungs: No Wheeze, Rales, Rhonchi Neuro: Alert and responsive, No focal deficits noted Abdomen: Soft, Non-Tender Skin: No rashes noted on visualized skin Musculoskeletal: No Chest Wall Tenderness Extremities: No Clubbing, No Cyanosis, No Edema, Normal Pulses Results 01/07/17 02:50 01/07/17 02:50 Lab Results 01/06/17 01/06/17 01/06/17 21:14 21:14 22:45 WBC 25.0 H Hgb 13.0 Hct 38.1 Plt Count 246 INR 1.1 APTT 114.3 H* Sodium 132 L Potassium 3.8 Chloride 103 Carbon Dioxide 18 L BUN 22 Creatinine 1.34 H Glucose 310 H Calcium 7.1 L Magnesium 1.4 L Total Bilirubin AST ALT Alkaline Phosphatase TSH 01/06/17 01/07/17 01/07/17 22:45 02:30 02:50 WBC 21.8 H Hgb 14.5 D Hct 41.5 Plt Count 325 INR APTT 127.0 H* Sodium Potassium Chloride Carbon Dioxide BUN Creatinine Glucose Calcium Magnesium Total Bilirubin 0.5 AST 114 H ALT 87 H Alkaline Phosphatase 65 TSH 1.142 01/07/17 01/07/17 02:50 09:00 WBC Hgb Hct Plt Count INR APTT 35.8 D Sodium 137 Potassium 4.4 Chloride 105 Carbon Dioxide 24 BUN 21 Creatinine 1.30 H Glucose 143 H Calcium 8.3 L D Magnesium 2.1 Total Bilirubin AST ALT Alkaline Phosphatase TSH - Imaging and Cardiology Cardiac cath: report reviewed - VTE Reasons for not Prescribing Prophylaxis: Not indicated-Anticoagulated or INR therapeutic Consult Discharge Plan - Plan Referrals: Jean-Paul Conn [Primary Care Provider] -
[2017-01-07] MEDS ORDERED: *HR* Ticagrelor 90 MG TABLET PO SCH (14:00)
[2017-01-07] MEDS: *HR* Ticagrelor 90 MG TABLET PO SCH ×2 (16:07→20:54)
[2017-01-07] MEDS: Amiodarone Premix 360 MG/200 ML BAG IVC SCH (19:19)
[2017-01-08 04:11] LABS: Basophils % 0.3 %; Eosinophils % 0.1 %; Hemoglobin 13.5 g/dL (12.9-16.9); Immature Granulocytes % 0.7 % (0-4); Lymphocytes # 1.5 K/mcL (0.6-4.6); Lymphocytes % 11.2 %; Mean Corpuscular HGB Conc 33.8 g/dL (31.6-35.5); Mean Corpuscular Hemoglobin 30.5 pg (28.0-33.3); Mean Corpuscular Volume 90.3 fL (83.0-100.0); Mean Platelet Volume 10.4 fL (9.4-12.4); Monocytes # 1.5 K/mcL (0.0-1.3); Monocytes % 11.2 %; Neutrophils # 10.5 K/mcL (1.6-8.9); Platelet Count 213 K/mcL (140-400); Red Blood Count 4.43 M/mcL (4.19-5.50); Red Cell Distribution Width 13.4 % (11.5-14.5); Segmented Neutrophils % 76.5 %
[2017-01-08 04:18] LABS: BUN/Creatinine Ratio 18 (6-26); Blood Urea Nitrogen 19 mg/dL (8-26); Calcium 8.8 mg/dL (8.6-10.8); Carbon Dioxide 25 mEq/L (19-29); Chloride 102 mEq/L (98-109); Glucose 109 mg/dL (70-99); Osmolality,Calculated 287 (280-300); Potassium 4.1 mEq/L (3.5-4.5); Sodium 137 mEq/L (136-145); eGFR For African Americans > 60 (> 60); eGFR For Non-African Americans > 60 (> 60)
--- NOTE | 2017-01-08 06:39 | Pulmonology Progress Note ---
<Bob Mcmahon M - Last Filed: 01/08/17 10:07> Date of Encounter: 01/08/17 Objective PUL Vital signs: Last Vital Signs Temp 99 F 01/08/17 08:00 Pulse 95 01/08/17 09:00 Resp 22 01/08/17 09:00 BP 155/97 01/08/17 09:00 Pulse Ox 91 01/08/17 09:00 Results - Laboratory Findings CBC and BMP: 01/08/17 03:45 01/08/17 03:45 ABG ABG pH 7.03 pH Units (7.32-7.45) L* 01/06/17 21:07 ABG pCO2 63 mmHg (35-45) H 01/06/17 21:07 ABG pO2 207 mmHg (85-104) H 01/06/17 21:07 ABG O2 Saturation 99 % (95-98) H 01/06/17 21:07 PT/INR, D-dimer PT 12.4 Seconds (9.4-12.1) H 01/06/17 22:45 Abnormal lab findings: Abnormal lab results WBC 13.7 K/mcL (4.3-11.1) H 01/08/17 03:45 Neutrophils # 10.5 K/mcL (1.6-8.9) H 01/08/17 03:45 Monocytes # 1.5 K/mcL (0.0-1.3) H 01/08/17 03:45 Immature Plt Fraction 6.7 % (1.1-6.1) H 01/07/17 02:50 PT 12.4 Seconds (9.4-12.1) H 01/06/17 22:45 Heparin Anti-Xa, Unfract 0.93 IU/mL (0.30-0.70) H 01/07/17 02:30 ABG pH 7.03 pH Units (7.32-7.45) L* 01/06/17 21:07 ABG pCO2 63 mmHg (35-45) H 01/06/17 21:07 ABG pO2 207 mmHg (85-104) H 01/06/17 21:07 ABG HCO3 17 mEq/L (21-27) L 01/06/17 21:07 ABG Total CO2 19 mEq/L (20-26) L 01/06/17 21:07 ABG O2 Saturation 99 % (95-98) H 01/06/17 21:07 ABG Base Excess -15 mEq/L (-2 to 3) L 01/06/17 21:07 Glucose 109 mg/dL (70-99) H 01/08/17 03:45 POC Glucose 96 (58-89) H 01/07/17 15:54 AST 114 Units/L (5-34) H 01/06/17 22:45 ALT 87 Units/L (0-55) H 01/06/17 22:45 Albumin 3.4 g/dL (3.5-5.0) L 01/06/17 22:45 LDL Cholesterol, Calc 115 mg/dL (0-99) H 01/07/17 02:50 - Clinical Findings Intake & Output: Intake & Output 01/07/17 01/08/17 01/08/17 23:59 07:59 15:59 Intake Total 960 / 960 280 / 280 200 / 200 Output Total 485 / 485 225 / 225 450 / 450 Balance 475 / 475 55 / 55 -250 / -250 Weight 83.3 kg Consult Discharge Plan - Plan Referrals: Jean-Paul Conn [Primary Care Provider] - - Attending Attestation I examined this patient and my medical decision-making was reviewed with the Resident Physician. I agree with the documented findings, disposition and treatment plan as described except to the extent set forth below. Patient seen and examined. Labs, radiology, chart personally reviewed. Agree with resident's history and physical, assessment, plan with following comments: BLUNGER: Patient follows commands, Pulmonary: Acceptable oxygenation and ventilation. Patient is doing very well after extubation and encourage incentive spirometry. Cardiovascular: Management by cardiology team. GI: Nutrition per dietary and GI prophylaxis per routine Heme: DVT prophylaxis per routine ID: No evidence of infections Renal; urine out put and renal funtion reviewed Endorcine: blood glucose is monitored Lines: all lines checked and no evidence of infections Skin: skin care to prevent pressure ulcers per nursing routine care <Ynes Cohn - Last Filed: 01/08/17 14:46> Date of Encounter: 01/08/17 Time of Encounter: 06:39 Assessment and Plan (1) ST elevation (STEMI) myocardial infarction involving left anterior descending coronary artery Current Visit: Yes Status: Acute Anterior STEMI with cardiogenic shock s/p v-fib arrest in the ED. S/p PCI of the LAD on IABP. Cardio is primary service: d/c amiodarone and start beta-levi. Asa, brilinta, statin. Will need DAPT with asa and brilinta uninterrupted for minimum of one year. TTE shows EF 30-35%. Plan for repeat TTE tomorrow Discussed with Aram ROMERO this afternoon, recommends Imdur 30 mg PO (2) Cardiac arrest Current Visit: Yes Status: Acute Patient s/p cardiac arrest Will closely monitor for changes in hemodynamic (3) Acute respiratory failure Current Visit: Yes Status: Resolved Acute hypoxic respiratory failure in the setting of cardiac arrest, s/p successful extubation Acceptable oxygenation and ventilation - continue to monitor respiratory status Incentive spirometry Qualifiers: Respiratory failure complication: hypoxia Qualified Code(s): J96.01 - Acute respiratory failure with hypoxia Subjective Principal diagnosis: STEMI Interval history: Patient's chest soreness resolved. No SOB. Objective PUL Vital signs: Last Vital Signs Temp 98.7 F 01/08/17 04:00 Pulse 90 01/08/17 05:58 Resp 20 01/08/17 05:58 BP 105/62 01/08/17 05:58 Pulse Ox 91 01/08/17 05:58 General appearance: no acute distress Eyes: nonicteric ENT: oropharynx moist Neck: supple Effort: normal Auscultation: bilateral: clear Cardiovascular: regular rate and rhythm, other (no chest tenderness ) Gastrointestinal: soft, non-tender, non-distended Integumentary: normal pupils equal and round other (cheerful ) Results - Laboratory Findings CBC and BMP: 01/08/17 03:45 01/08/17 03:45 ABG ABG pH 7.03 pH Units (7.32-7.45) L* 01/06/17 21:07 ABG pCO2 63 mmHg (35-45) H 01/06/17 21:07 ABG pO2 207 mmHg (85-104) H 01/06/17 21:07 ABG O2 Saturation 99 % (95-98) H 01/06/17 21:07 PT/INR, D-dimer PT 12.4 Seconds (9.4-12.1) H 01/06/17 22:45 Abnormal lab findings: Abnormal lab results WBC 13.7 K/mcL (4.3-11.1) H 01/08/17 03:45 Neutrophils # 10.5 K/mcL (1.6-8.9) H 01/08/17 03:45 Monocytes # 1.5 K/mcL (0.0-1.3) H 01/08/17 03:45 Immature Plt Fraction 6.7 % (1.1-6.1) H 01/07/17 02:50 PT 12.4 Seconds (9.4-12.1) H 01/06/17 22:45 APTT 56.1 Seconds (26.0-36.0) H 01/08/17 03:45 Heparin Anti-Xa, Unfract 0.93 IU/mL (0.30-0.70) H 01/07/17 02:30 ABG pH 7.03 pH Units (7.32-7.45) L* 01/06/17 21:07 ABG pCO2 63 mmHg (35-45) H 01/06/17 21:07 ABG pO2 207 mmHg (85-104) H 01/06/17 21:07 ABG HCO3 17 mEq/L (21-27) L 01/06/17 21:07 ABG Total CO2 19 mEq/L (20-26) L 01/06/17 21:07 ABG O2 Saturation 99 % (95-98) H 01/06/17 21:07 ABG Base Excess -15 mEq/L (-2 to 3) L 01/06/17 21:07 Glucose 109 mg/dL (70-99) H 01/08/17 03:45 POC Glucose 96 (58-89) H 01/07/17 15:54 AST 114 Units/L (5-34) H 01/06/17 22:45 ALT 87 Units/L (0-55) H 01/06/17 22:45 Albumin 3.4 g/dL (3.5-5.0) L 01/06/17 22:45 LDL Cholesterol, Calc 115 mg/dL (0-99) H 01/07/17 02:50 - Clinical Findings Intake & Output: Intake & Output 01/07/17 01/07/17 01/08/17 15:59 23:59 07:59 Intake Total 52 / 52 960 / 960 212 / 212 Output Total 400 / 400 485 / 485 225 / 225 Balance -348 / -348 475 / 475 -13 / -13 Weight 83.3 kg - VTE Reasons for not Prescribing Prophylaxis: Not indicated-Anticoagulated or INR therapeutic
[2017-01-08] MEDS: Amiodarone Premix 360 MG/200 ML BAG IVC SCH (08:19)
[2017-01-08] MEDS ORDERED: Furosemide 20 MG/2 ML VIAL IVP ONE (09:22)
--- NOTE | 2017-01-08 09:52 | Cardiology Progress Note ---
Date of Encounter: 01/08/17 Time of Encounter: 09:49 Assessment and Plan (1) ST elevation (STEMI) myocardial infarction involving left anterior descending coronary artery Current Visit: Yes Status: Acute The assessment and plan as outlined above was discussed with the patient and/or family members who expressed understanding and agreement. All questions were answered. Anterior STEMI with cardiogenic shock s/p v-fib arrest in the ED. S/p PCI of the LAD on IABP. Weaned off pressor support 01/07/17. On amiodarone IV for v-fib. Discussed with Dr. Jasvir manning to d/c amiodarone and start beta-levi. Asa, brilinta, statin. Will need DAPT with asa and brilinta uninterrupted for minimum of one year. Heparin now on hold with plan for removal of IABP this morning after 2:1 trail. TTE shows EF 30-35%. Plan for repeat TTE tomorrow to re-evaluate after IAPB removal. Telemetry review shows NSR. No recurrent VT. Occasional PVC. Noted to have leuckocytosis, likely reactive secondary to ME. Likely step down from ICU tomorrow. (2) Cardiac arrest Current Visit: Yes Status: Acute (3) Acute respiratory failure Current Visit: Yes Status: Resolved Acute hypoxic respiratory failure in the setting of cardiac arrest. Extubated yesterday. On 3l NC doing well. Appreciate pulmonary input. Qualifiers: Respiratory failure complication: hypoxia Qualified Code(s): J96.01 - Acute respiratory failure with hypoxia (4) Ischemic cardiomyopathy Current Visit: Yes Status: Acute EF 30-35% s/p ME. Serial TTE. Change metoprolol tartrate to long acting prior to d/c. Consider adding fadia- inhibitor as b/p improves. Currently euvolemic. CHF education. Discussion w patient/family: The assessment and plan as outlined above was discussed with the patient and/or family members who expressed understanding and agreement. All questions were answered. Thank you for involving us in the care of your patient. Please call with any questions. Subjective Principal diagnosis: STEMI Interval history: Patient awake, alert and oriented, and following commands. Extubated yesterday. Continues to be on the IABP. Reports he is feeling well. Denies chest pain. Objective Vital Signs, Last 4 Hours Temp Pulse Resp BP Pulse Ox 01/08/17 09:00 95 22 155/97 91 01/08/17 08:00 99 F 84 20 105/57 92 01/08/17 07:00 84 18 110/61 91 01/08/17 05:58 90 20 105/62 91 General: Conversant, No Apparent Distress HEENT: Atraumatic, Normocephaly, Mucus Membranes Moist Neck: No JVD, Normal carotid pulses Cardiac: Reg Rate and Rhythm, Normal S1 and S2, No Murmur, Other (IABP intact and audible over left chest and abdomen. Pedal pulses 2/4+ bilaterally. ) Lungs: Normal Breath Sounds, No Wheeze, Rales, Rhonchi Neuro: Alert and responsive, No focal deficits noted Abdomen: Soft, Non-Tender Skin: No rashes noted on visualized skin Musculoskeletal: Other (Mild reproducible chest pain) Extremities: No Clubbing, No Cyanosis, No Edema, Normal Pulses Results 01/08/17 03:45 01/08/17 03:45 Lab Results 01/07/17 01/07/17 01/08/17 17:00 21:25 03:45 WBC 13.7 H Hgb 13.5 Hct 40.0 Plt Count 213 APTT 49.4 H 74.6 H D Sodium Potassium Chloride Carbon Dioxide BUN Creatinine Glucose Calcium 01/08/17 01/08/17 01/08/17 03:45 03:45 08:57 WBC Hgb Hct Plt Count APTT 56.1 H 28.4 Sodium 137 Potassium 4.1 Chloride 102 Carbon Dioxide 25 BUN 19 Creatinine 1.05 Glucose 109 H Calcium 8.8 - Imaging and Cardiology Echo: report reviewed Cardiac cath: report reviewed - EKG Interpretation EKG results cardiology: personally reviewed - VTE Reasons for not Prescribing Prophylaxis: Not indicated-Anticoagulated or INR therapeutic Consult Discharge Plan - Plan Referrals: Jean-Paul Conn [Primary Care Provider] -
[2017-01-08] MEDS: Aspirin 81 MG TAB.CHEW PO SCH (10:12)
[2017-01-08] MEDS: *HR* Ticagrelor 90 MG TABLET PO SCH ×2 (10:12→20:52)
[2017-01-08] MEDS: Pantoprazole 40 MG VIAL IVP SCH (10:12)
[2017-01-08] MEDS: *HR* FentaNYL (PF) 100 MCG/2 ML VIAL IVP PRN ×2 (14:59→21:14)
[2017-01-08] MEDS ORDERED: Levalbuterol Neb 1.25 MG/3 ML IH PRN (17:24)
[2017-01-08] MEDS: Levofloxacin 750 MG/150 ML 750 MG/150 ML BAG IVPB SCH (17:53)
[2017-01-09] MEDS: *HR* FentaNYL (PF) 100 MCG/2 ML VIAL IVP PRN ×2 (00:03→03:48)
[2017-01-09 04:55] LABS: Basophils % 0.3 %; Eosinophils % 0.1 %; Hematocrit 41.6 % (37.5-50.1); Hemoglobin 14.3 g/dL (12.9-16.9); INR 1.3; Immature Granulocytes % 0.9 % (0-4); Lymphocytes # 1.2 K/mcL (0.6-4.6); Lymphocytes % 8.4 %; Mean Corpuscular HGB Conc 34.4 g/dL (31.6-35.5); Mean Corpuscular Hemoglobin 30.6 pg (28.0-33.3); Mean Corpuscular Volume 88.9 fL (83.0-100.0); Mean Platelet Volume 10.6 fL (9.4-12.4); Monocytes # 1.6 K/mcL (0.0-1.3); Monocytes % 10.9 %; Neutrophils # 11.3 K/mcL (1.6-8.9); Platelet Count 205 K/mcL (140-400); Prothrombin Time 14.3 Seconds (9.4-12.1); Red Blood Count 4.68 M/mcL (4.19-5.50); Red Cell Distribution Width 13.1 % (11.5-14.5); Segmented Neutrophils % 79.4 %
[2017-01-09 05:02] LABS: BUN/Creatinine Ratio 22 (6-26); Blood Urea Nitrogen 24 mg/dL (8-26); Calcium 9.1 mg/dL (8.6-10.8); Carbon Dioxide 26 mEq/L (19-29); Chloride 101 mEq/L (98-109); Glucose 98 mg/dL (70-99); Osmolality,Calculated 288 (280-300); Sodium 137 mEq/L (136-145); eGFR For African Americans > 60 (> 60); eGFR For Non-African Americans > 60 (> 60)
[2017-01-09] MEDS ORDERED: *HR* EPINEPHrine 1 MG/10 ML SYRINGE IVP ONE ×2 (08:05→08:40)
[2017-01-09] MEDS ORDERED: *HR* Succinylcholine 200 MG/10 ML VIAL IVP ONE (08:07)
[2017-01-09] MEDS ORDERED: *HR* Rocuronium Bromide 50 MG/5 ML VIAL IVC ONE (08:07)
[2017-01-09] MEDS ORDERED: *HR* Etomidate 20 MG/10 ML AMPUL IVP ONE (08:07)
[2017-01-09] MEDS ORDERED: *HR* Norepinephrine 4 MG/4 ML VIAL IVC ONE (08:40)
[2017-01-09] MEDS ORDERED: *HR* Amiodarone 150 MG/3 ML VIAL IVPB ONE (08:40)
[2017-01-09] MEDS ORDERED: Lidocaine 2% Syringe 100 MG/5 ML IV ONE (08:40)
[2017-01-09] MEDS ORDERED: Isosorbide MONOnitrate (24 HR) 30 MG TAB.ER.24H PO SCH (09:00)
[2017-01-09] MEDS: Pantoprazole 40 MG VIAL IVP SCH (09:01)
[2017-01-09] MEDS: Levofloxacin 750 MG/150 ML 750 MG/150 ML BAG IVPB SCH (09:01)
[2017-01-09] MEDS: Aspirin 81 MG TAB.CHEW PO SCH (09:02)
[2017-01-09] MEDS: *HR* Ticagrelor 90 MG TABLET PO SCH ×2 (09:02→20:27)
[2017-01-09] MEDS: Acetaminophen 325 MG TABLET PO PRN ×3 (09:20→22:56)
[2017-01-09] MEDS ORDERED: Ketorolac 30 MG/ML VIAL IVP ONE (09:52)
--- NOTE | 2017-01-09 10:26 | Cardiology Progress Note ---
Date of Encounter: 01/09/17 Time of Encounter: 08:45 Assessment and Plan (1) ST elevation (STEMI) myocardial infarction involving left anterior descending coronary artery Current Visit: Yes Status: Acute The assessment and plan as outlined above was discussed with the patient and/or family members who expressed understanding and agreement. All questions were answered. Anterior STEMI with cardiogenic shock. Developed v-fib arrest in the ED and received ACLS/CPR with ROSC. S/p PCI of the LAD. There was a blood clot noted in the 1st diagonal (small artery) treated medically. 25% stenosis in the mRCA. Weaned off pressor support 01/07/17. On amiodarone IV for v-fib initially and converted to metoprolol. Asa, brilinta, statin, bb. Will need DAPT with asa and brilinta uninterrupted for minimum of one year. Patient and significant other voiced understanding. Toprol XL increased today. TTE shows EF 30-35%. Telemetry review shows NSR. No recurrent VT. Occasional PVC. Step down to 2n today and ambulate. (2) Cardiac arrest Current Visit: Yes Status: Acute (3) Acute respiratory failure Current Visit: Yes Status: Resolved Acute hypoxic respiratory failure in the setting of cardiac arrest. Extubated yesterday. On 3l NC doing well. Appreciate pulmonary input. Qualifiers: Respiratory failure complication: hypoxia Qualified Code(s): J96.01 - Acute respiratory failure with hypoxia (4) Ischemic cardiomyopathy Current Visit: Yes Status: Acute EF 30-35% s/p NE. Serial TTE. Change metoprolol tartrate to long acting prior to d/c. Consider adding fadia- inhibitor as b/p improves. Currently euvolemic. CHF education. (5) Leukocytosis Current Visit: Yes Status: Acute Noted to have leuckocytosis, likely reactive secondary to NE and also being treated for bronchitis. CXR shows mild patchy opacities over right lung base. Infiltrate vs atelectasis. Discussed with pulmonology. They will review and give recommendations. Likely atelectasis. He is on levaquin for bronchitis. Start I.S. Qualifiers: Leukocytosis type: unspecified Qualified Code(s): D72.829 - Elevated white blood cell count, unspecified Discussion w patient/family: The assessment and plan as outlined above was discussed with the patient and/or family members who expressed understanding and agreement. All questions were answered. Thank you for involving us in the care of your patient. Please call with any questions. Subjective Principal diagnosis: STEMI Interval history: Patient awake, alert and oriented, and following commands. Continues to have reproducible chest pain. Noted to have mild hematuria in perez catheter. Objective Vital Signs, Last 4 Hours Temp Pulse Resp BP Pulse Ox 01/09/17 10:00 74 20 83/54 01/09/17 09:00 87 24 118/72 94 01/09/17 08:00 88 20 126/84 93 01/09/17 07:48 97.9 F 01/09/17 07:00 88 20 122/81 93 General: Conversant, No Apparent Distress HEENT: Atraumatic, Normocephaly, Mucus Membranes Moist Neck: No JVD, Normal carotid pulses Cardiac: Reg Rate and Rhythm, Normal S1 and S2, No Murmur Lungs: Normal Breath Sounds, No Wheeze, Rales, Rhonchi Neuro: Alert and responsive, No focal deficits noted Abdomen: Soft, Non-Tender Skin: No rashes noted on visualized skin Musculoskeletal: Other (Chest wall tender to palpation.) Extremities: No Clubbing, No Cyanosis, No Edema, Normal Pulses Results 01/09/17 03:45 01/09/17 03:45 Lab Results 01/09/17 01/09/17 01/09/17 03:45 03:45 03:45 WBC 14.3 H Hgb 14.3 Hct 41.6 Plt Count 205 INR 1.3 Sodium 137 Potassium 4.0 Chloride 101 Carbon Dioxide 26 BUN 24 Creatinine 1.11 Glucose 98 Calcium 9.1 - Imaging and Cardiology Echo: report reviewed Cardiac cath: report reviewed - EKG Interpretation EKG results cardiology: personally reviewed - VTE Reasons for not Prescribing Prophylaxis: Not indicated-Anticoagulated or INR therapeutic Consult Discharge Plan - Plan Referrals: Jean-Paul Conn [Primary Care Provider] -
--- NOTE | 2017-01-09 16:56 | Electrocardiograph Report ---
[address] [place] [address] Test Date: 2017-01-06 Pat Name: Cayden Cristina Department: 109 Room: [facility] Gender: M Network Technician: GOLD : 1950 Requested By: Heather Marin Order Number: [id number] Reading MD: Shama Ríos Measurements Intervals [place] Rate: 123 P: 84 [place]: 168 QRS: 87 QRSD: 161 T: 87 QT: 335 QTc: 408 Interpretive Statements SINUS TACHYCARDIA RIGHT BUNDLE BRANCH BLOCK SEPTAL MYOCARDIAL INFARCTION, OF INDETERMINATE AGE Electronically Signed On 01-09-2017 16:54:45 EDT by Shama Ríos
--- NOTE | 2017-01-09 17:00 | Electrocardiograph Report ---
[place] [address] Test Date: 2017-01-07 Pat Name: Cayden Cristina Department: 109 Room: [facility] Gender: M Weekend Caregiver: : 1950 Requested By: Heather Marin Order Number: [id number] Reading MD: Shama Ríos Measurements Intervals [place] Rate: 78 P: 74 [place]: 170 QRS: 41 QRSD: 82 T: 89 QT: 343 QTc: 376 Interpretive Statements SINUS RHYTHM Electronically Signed On 01-09-2017 16:59:35 EDT by Shama Ríos
--- NOTE | 2017-01-09 17:22 | Electrocardiograph Report ---
[place] [address] Test Date: 2017-01-08 Pat Name: Cayden Cristina Department: 109 Room: [facility] Gender: M [place]: : 1950 Requested By: Heather Marin Order Number: [id number] Reading MD: Shama Ríos Measurements Intervals [place] Rate: 82 P: 74 [place]: 165 QRS: 41 QRSD: 93 T: 91 QT: 337 QTc: 376 Interpretive Statements SINUS RHYTHM NONSPECIFIC T-WAVE ABNORMALITY Electronically Signed On 01-09-2017 17:21:30 EDT by Shama Ríos
[2017-01-09] MEDS ORDERED: Ondansetron 4 MG/2 ML VIAL IVP PRN (19:34)
[2017-01-09] MEDS ORDERED: Levalbuterol Neb 1.25 MG/3 ML IH PRN (19:34)
[2017-01-10] MEDS: Acetaminophen 325 MG TABLET PO PRN ×2 (04:39→11:03)
[2017-01-10] MEDS: *HR* Ticagrelor 90 MG TABLET PO SCH (08:22)
[2017-01-10] MEDS ORDERED: Levofloxacin 750 MG/150 ML 750 MG/150 ML BAG IVPB SCH (09:00)
[2017-01-10] MEDS ORDERED: Metoprolol XL (24 HR) Succ 25 MG TAB.ER.24H PO SCH ×2 (09:00→12:45)
[2017-01-10] MEDS ORDERED: Isosorbide MONOnitrate (24 HR) 30 MG TAB.ER.24H PO SCH (09:00)
[2017-01-10] MEDS ORDERED: Aspirin 81 MG TAB.CHEW PO SCH (09:00)
[2017-01-10 11:08] VITALS: BP 117/75
--- NOTE | 2017-01-10 12:50 | Discharge Summary ---
Date of Encounter: 01/10/17 Time of Encounter: 10:15 - Discharge Diagnosis (1) ST elevation (STEMI) myocardial infarction involving left anterior descending coronary artery Priority: Primary Status: Acute (2) Cardiac arrest Priority: Primary Status: Acute (3) Acute respiratory failure Priority: Primary Status: Resolved Qualifiers: Respiratory failure complication: hypoxia Qualified Code(s): J96.01 - Acute respiratory failure with hypoxia (4) Ischemic cardiomyopathy Priority: Primary Status: Acute (5) Leukocytosis Priority: Secondary Status: Acute Qualifiers: Leukocytosis type: unspecified Qualified Code(s): D72.829 - Elevated white blood cell count, unspecified (6) Hematuria Priority: Secondary Status: Acute Qualifiers: Hematuria type: unspecified type Qualified Code(s): R31.9 - Hematuria, unspecified - Discharge Medications Prescriptions: RX: Aspirin 81 mg PO DAILY #30 tab.chew RX: Atorvastatin [Lipitor] 80 mg PO HS #30 tablet Isosorbide MONOnitrate (24 HR) [Imdur] 30 mg PO DAILY #30 tab.er.24h RX: Metoprolol Succinate 25 mg PO DAILY #30 tab.er.24h RX: Ticagrelor [Brilinta] 90 mg PO BID #60 tablet Home Medications: RX: Albuterol Sulfate [Ventolin Hfa] 1 - 2 puff IH Q6H PRN 01/07/17 [History] RX: Lansoprazole [Prevacid] 30 mg PO DAILY 01/07/17 [History] RX: Tamsulosin HCl [Flomax] 0.4 mg PO DAILY 01/07/17 [History] RX: Umeclidinium Brm/Vilanterol Tr [Anoro Ellipta 62.5-25 Mcg INH] 1 puff IH DAILY 01/07/17 [History] Isosorbide MONOnitrate (24 HR) [Imdur] 30 mg PO DAILY #30 tab.er.24h 01/10/17 [ Rx] RX: Aspirin 81 mg PO DAILY #30 tab.chew 01/10/17 [Rx] RX: Atorvastatin [Lipitor] 80 mg PO HS #30 tablet 01/10/17 [Rx] RX: Metoprolol Succinate 25 mg PO DAILY #30 tab.er.24h 01/10/17 [Rx] RX: Ticagrelor [Brilinta] 90 mg PO BID #60 tablet 01/10/17 [Rx] Allergies/Adverse Reactions: 3 Allergy/AdvReac Type Severity Reaction Status Date / Time Penicillins Allergy Hives Verified 01/06/17 19:56 Procedures/tests Complete & Pending: Procedures Performed prior 72 hours Category Date Time Status ECG 12 lead ECG [ECG] Routine Y 01/07/17 14:02 Completed ECG 12 lead ECG [ECG] Routine Y 01/08/17 14:38 Completed EV echocardiogram w enhance Routine Y 01/07/17 21:50 Completed Date of admission: 01/06/17 20:56 Primary care physician: Jean-Paul Conn Consults: 01/06/17 21:50 Consult to Cardiac Rehabilitation-Phase1 [CONS] Routine Comment: Reason for Consult: AMI Call Completed: Yes Consult to Nurse Navigator [CONS] Routine Comment: 01/07/17 08:28 Consult to Pulmonology [CONS] Stat Consulting Provider: [facility] Reason for Consult: vent management Call Completed: Yes 01/08/17 17:31 Consult to Urology [CONS] Routine Consulting Provider: [facility] Reason for Consult: blood tinged in perez catheter Call Completed: No Discharging clinician: Efra Chiu Anticipated date of discharge: 01/10/17 - Patient Status Disposition: Home, Self-Care Condition: Critical Overall status at discharge: patient is progressing back to baseline - Discharge Instructions Follow Up With: Jean-Paul Conn [Primary Care Provider] - Forms: ED Satisfaction Letter Additional Instructions: RISK FACTORS: STOP SMOKING: If you smoke, STOP. Smoking or tobacco use significantly increases your risk of heart disease because nicotine causes the arteries to narrow or constrict. It also causes fats to stick to the artery. Your chances of having a heart attack are greatly increased if you continue to smoke. For more information, call the education line for smoking cessation 1-277-WKAJGNQ EAT A LOW FAT/CHOLESTEROL/SODIUM DIET: This diet may help reduce your chances of having a heart attack. LIFTING: Avoid lifting anything more than 10 pounds for 5-7 days Prior to straining, laughing, sneezing and/or coughing, apply manual pressure directly over insertion site. ACTIVITY: You may walk or climb stairs as tolerated You can resume sexual activity as tolerated In general, you are encouraged to engage in a minimum of 30 minutes or more of moderate intensity physical activity, such as brisk walking, daily or at least 3 -4 times weekly BATHING Do not submerge the site into water (bath tub, hot tub, swimming pool) for 1 week. This can be a source for infection into the blood stream. You may shower after 24 hours SITE CARE: After 24 hours, you may remove the dressing and leave the site open to air. Keep the site clean and dry. Clean gently and pat dry. You can expect bruising and tenderness that gradually resolve within a week or two. Return to work as instructed per your physician Resume driving as instructed per physician Keep all scheduled follow up appointments Resume medications as instructed IMPORTANT: If prescribed a Platelet Aggregation Inhibitor such as, Plavix, Brilinta or Effient: Duration of therapy is minimum one year These medications are often used in combination with Aspirin in prevention of future heart attacks Never discontinue unless consult with your Missile Pad Mechanic STROKE (CVA) Risk factors for a stroke are: Age, cigarette smoking, diabetes, excessive alcohol consumption, family history, high blood pressure, overweight, physical inactivity, prior stroke, heart attack, diagnosis of carotid artery stenosis or other artery disease. Warning signs: Sudden numbness or weakness of the face, arm or leg; especially on one side of the body, sudden confusion, trouble speaking or understanding, sudden trouble seeing in one or both eyes, sudden trouble walking, dizziness, loss of balance or coordination, sudden severe headache with no cause. Call 911 or go to the Emergency Room. CONGESTIVE HEART FAILURE: If you have been diagnosed with Congestive Heart Failure (CHF) and your symptoms return, make an appointment with your physician Weigh yourself daily. Notify your physician if you have a weight gain of two or more pounds in one day or five or more pounds in one week. If you experience any difficulty breathing, please call 911 BLEEDING: Although the risk of bleeding is minimal, it can happen. If you have any bleeding from the site, apply firm pressure above the puncture site for 10-15 minutes. If the bleeding does not stop, continue manual pressure and call 911 Contact your physician if: You develop a fever greater than 101 degrees Fahrenheit Your site becomes reddened or has any drainage You have an increase in pain or burning at the site or if a large knot forms at the site. If you experience chest pain, shortness of breath, dizziness, or extreme tiredness, stop the activity and rest. Please notify your physicians office if you experience any of these symptoms and they are not relieved by rest please call 911! - Diet and Activity Diet: low fat, low cholesterol - Hospital Course Hospital course: Mr. Cristina is a 66 year old male who presented to the ER with chest pain. While in the ER he developed multiple v-fib arrest and respiratory failure. He received ACLS with ROSC and developed cardiogenic shock. He required intubation. Underwent emergent LHC and received PCI to the pLAD with LUDA with good results. There was a thrombus in a small DX and medical management was recommended. IABP was utilized for 24 hours and he was weaned off. TTE showed EF 30-35% (while on IABP). Recommend repeat study in 45 days. He was loaded on IV amiodarone and then started on metoprolol once b/p improved. No recurrent arrhythmias seen in the last 48 hours. He has reproducible chest wall pain secondary to CPR. Otherwise he feels well. During his hospitalization he was followed by pulmonology. He was weaned off the ventilator 01/08/17. He was noted to have leukocytosis, likely reactive from IN. He was started on levaquin for concern of bronchitis by admitting call box wirer. After extubation chest x-ray showed atelectasis vs infiltrate. Reviewed with pulmonology team. CXR findings likely atelectasis and he was already given levaquin. Patient is afebrile. Continued Good pulmonary hygiene recommended. He received 3 days of IV levaquin. he will continue home inhaler. He developed mild hematuria while on heparin gtt. Hematuria resolved after discontinuation of heparin gtt. Now voiding without difficulty. Importance of DAPT with asa and brilinta for minimum of one year uninterrupted reviewed with patient and family. Free 30 day brilinta card given. They voiced understanding. Healthy heart diet and exercise reviewed. Cardiac rehab discussed. Continue statin and bb therapy. No fadia-inhibitor started due to hypotension. Consider starting at f/u. He is euvolemic on exam. CHF education given. Activity restrictions reviewed. No lifting over 10 lbs for one week. No driving for a week. No tub baths for one week. He can take showers. Out-pt f/u will be coordinated by [facility]. Time spent discussing smoking cessation with patient: more than 10 minutes ( smoking cessation discussed.) - Time Spent with Patient Total time spent providing and/or coordinating discharge services: Greater than 30 minutes (D/c , summary, teaching, med rec.) Physical Examination Vital Signs, Last 4 Hours Temp Pulse Resp BP 01/10/17 11:00 97.6 F 101 20 117/75 01/10/17 09:00 20 General: Conversant, No Apparent Distress HEENT: Atraumatic, Normocephaly, Mucus Membranes Moist Neck: No JVD, Normal carotid pulses Cardiac: Reg Rate and Rhythm, Normal S1 and S2, No Murmur Lungs: Normal Breath Sounds, No Wheeze, Rales, Rhonchi Neuro: Alert and responsive, No focal deficits noted Abdomen: Soft, Non-Tender Skin: No rashes noted on visualized skin Musculoskeletal: Other (Reproducible chest wall pain) Extremities: No Clubbing, No Cyanosis, No Edema, Normal Pulses, Other (right groin soft without hematoma.) - VTE Reasons for not Prescribing Prophylaxis: Not indicated-Anticoagulated or INR therapeutic
--- NOTE | 2017-01-11 08:21 | Electrocardiograph Report ---
[address] [place] [address] Test Date: 2017-01-09 Pat Name: Cayden Cristina Department: 109 Room: [facility] Gender: M Emergency Management Director: CHAPINCITO : 1950 Requested By: Heather Marin Order Number: [id number] Reading MD: Shama Ríos Measurements Intervals [place] Rate: 71 P: 70 RI: 175 QRS: 27 QRSD: 77 T: 85 QT: 357 QTc: 379 Interpretive Statements SINUS RHYTHM SEPTAL MYOCARDIAL INFARCTION, PROBABLY OLD Electronically Signed On 01-11-2017 8:19:40 EDT by Shama Ríos
--- NOTE | 2017-01-12 09:47 | Electrocardiograph Report ---
[address] [place], [place] [address] Test Date: 2017-01-06 Pat Name: Cayden Cristina Department: 104 Room: [facility] Gender: M Telecommunicator: : 1950 Requested By: Valerio Rodríguez Order Number: [id number] Reading MD: Shama Ríos Measurements Intervals [place] Rate: 128 P: 76 ID: [id number] QRS: 20 QRSD: 95 T: 75 QT: 249 QTc: 325 Interpretive Statements SINUS TACHYCARDIA MARKED ST ELEVATION, CONSIDER ANTERIOR INJURY [MARKED ST ELEVATION W/O NORMALLY INFLECTED T WAVE IN V2-V5] MARKED ST ELEVATION, CONSIDER INFERIOR INJURY [MARKED ST ELEVATION W/O NORMALLY INFLECTED T WAVE IN II/aVF] ACUTE MN Electronically Signed On 01-12-2017 9:46:04 EDT by Shama Ríos
== END 2017-01-10 15:15 | disposition home or self-care (01) | DRG 174 ==
LOC: EMEROO 19:42 → ICNU 20:38
PROVIDERS: ADMIT Internal Medicine Cardiovascular Disease; ATTEND Internal Medicine Cardiovascular Disease

== ENCOUNTER 2018-12-14 13:09 | Inpatient (IN) ==
[2018-12-14] MEDS ORDERED: Ringers Solution, Lactated 1,000 ML IVC SCH (13:45)
[2018-12-14] MEDS ORDERED: *HR* Propofol 200 MG/20 ML VIAL IVP ONE (13:45)
[2018-12-14] MEDS ORDERED: Clindamycin 900 MG/50 ML 900 MG/50 ML IV.SOLN IVPB ONE (13:45)
[2018-12-14] MEDS ORDERED: *HR* Midazolam HCl 2 MG/2 ML VIAL ONE (13:45)
[2018-12-14] MEDS ORDERED: *HR* FentaNYL (PF) 100 MCG/2 ML VIAL ONE (13:45)
[2018-12-14] MEDS ORDERED: Lidocaine -MPF 2% 2 ML VIAL ONE (13:46)
[2018-12-14] MEDS ORDERED: Dexamethasone 4 MG/ML VIAL ONE (13:46)
[2018-12-14] MEDS ORDERED: Ondansetron 4 MG/2 ML VIAL ONE (13:46)
[2018-12-14] MEDS ORDERED: ROPIVACAINE/PF/NS 0.25% 1 EACH SYRINGE INTRAART ONE (13:47)
[2018-12-14] MEDS ORDERED: Albuterol 2.5 MG/3 ML NEBULIZER IH ONE (13:47)
[2018-12-14] MEDS ORDERED: Ropivacaine/PF 0.5% 30 ML VIAL ONE (13:47)
[2018-12-14] MEDS ORDERED: *HR* OxyCODONE Immed Rel 5 MG TABLET PO PRN (14:12)
[2018-12-14] MEDS ORDERED: Ondansetron 4 MG/2 ML VIAL IVP ONE (14:12)
[2018-12-14] MEDS ORDERED: *HR* HYDROmorphone (PF) 1 MG/ML SYRINGE IVP PRN (14:12)
[2018-12-14] MEDS ORDERED: Ethanol\\Acetic Acid\\Na Ace\\Ben 1,000 ML IRRIG.SOLN IR ONE (14:41)
[2018-12-14] MEDS ORDERED: *HR* Succinylcholine 200 MG/10 ML VIAL IVP ONE (15:10)
[2018-12-14] MEDS ORDERED: *HR* PHENYLEPHRINE 1,000 MCG/10 ML SYRINGE IVP ONE (15:27)
[2018-12-14] MEDS ORDERED: *HR* Vasopressin 20 UNIT/ML VIAL ONE (15:43)
[2018-12-14] MEDS ORDERED: *HR* Rocuronium Bromide 50 MG/5 ML VIAL ONE (15:47)
[2018-12-14] MEDS ORDERED: Neostigmine Methylsulfate 3 MG/3 ML SYRINGE ONE (15:58)
[2018-12-14] MEDS ORDERED: Ondansetron 4 MG/2 ML VIAL IVP PRN (17:14)
[2018-12-14] MEDS ORDERED: Sennosides 8.6 MG TABLET PO PRN (17:14)
[2018-12-14] MEDS ORDERED: *HR* OxyCODONE/APAP 5/325 TABLET PO PRN (17:14)
[2018-12-14] MEDS ORDERED: Clindamycin 900 MG/50 ML 900 MG/50 ML IV.SOLN IVPB SCH (17:14)
[2018-12-14] MEDS ORDERED: Temazepam 15 MG CAPSULE PO PRN (17:14)
[2018-12-14] MEDS ORDERED: MOM Conc 10 ML UD.LIQ PO PRN (17:14)
[2018-12-14 17:15] LABS: Hematocrit 41.2 % (37.5-50.1); Hemoglobin 13.5 g/dL (12.9-16.9)
[2018-12-14] MEDS ORDERED: *HR* Enoxaparin 30 MG/0.3 ML SYRINGE SQ SCH (18:00)
[2018-12-14] MEDS: Nicotine 21 MG PATCH.TD24 TD SCH (18:26)
[2018-12-14] MEDS: *HR* Enoxaparin 30 MG/0.3 ML SYRINGE SQ SCH (18:26)
[2018-12-14] MEDS: *HR* Ticagrelor 90 MG TABLET PO SCH (19:38)
[2018-12-14] MEDS: Budesonide/Formoterol 80/4.5 1 PUFF INH IH SCH (22:18)
[2018-12-14] MEDS: Clindamycin 900 MG/50 ML 900 MG/50 ML IV.SOLN IVPB SCH (22:38)
[2018-12-15] MEDS: traMADol 50 MG TABLET PO PRN ×2 (02:44→22:42)
[2018-12-15] MEDS: *HR* Enoxaparin 30 MG/0.3 ML SYRINGE SQ SCH ×2 (05:17→17:59)
[2018-12-15 06:46] LABS: Hematocrit 39.3 % (37.5-50.1); Hemoglobin 13.4 g/dL (12.9-16.9)
[2018-12-15 07:09] LABS: Calcium 9.3 mg/dL (8.6-10.3); Potassium 4.7 mEq/L (3.5-5.1)
[2018-12-15] MEDS: Budesonide/Formoterol 80/4.5 1 PUFF INH IH SCH ×2 (07:57→20:29)
[2018-12-15] MEDS: Tiotropium 18 MCG inhalation IH SCH (07:57)
[2018-12-15] MEDS: Clindamycin 900 MG/50 ML 900 MG/50 ML IV.SOLN IVPB SCH (08:00)
[2018-12-15] MEDS: *HR* Ticagrelor 90 MG TABLET PO SCH ×2 (08:01→19:53)
[2018-12-15] MEDS: Nicotine 21 MG PATCH.TD24 TD SCH (08:01)
[2018-12-15] MEDS: Metoprolol XL (24 HR) Succ 25 MG TAB.ER.24H PO SCH (08:01)
[2018-12-15] MEDS ORDERED: NON-FORMULARY MEDICATION 1 EACH EACH (Fluticasone/Umeclidin/Vilanter [Trelegy Ellipta 100- IH SCH (09:00)
[2018-12-15] MEDS: *HR* OxyCODONE Immed Rel 5 MG TABLET PO PRN ×3 (11:01→20:22)
[2018-12-15] MEDS: Ringers Solution, Lactated 1,000 ML IVC SCH ×3 (19:46→19:53)
[2018-12-16] MEDS: *HR* Enoxaparin 30 MG/0.3 ML SYRINGE SQ SCH ×2 (05:04→17:58)
[2018-12-16] MEDS: traMADol 50 MG TABLET PO PRN ×2 (05:05→20:42)
[2018-12-16] MEDS: Tiotropium 18 MCG inhalation IH SCH (07:55)
[2018-12-16] MEDS: Budesonide/Formoterol 80/4.5 1 PUFF INH IH SCH ×2 (07:55→22:58)
[2018-12-16] MEDS: Metoprolol XL (24 HR) Succ 25 MG TAB.ER.24H PO SCH (08:39)
[2018-12-16] MEDS: *HR* Ticagrelor 90 MG TABLET PO SCH ×2 (08:40→20:42)
[2018-12-16] MEDS: Nicotine 21 MG PATCH.TD24 TD SCH (08:40)
[2018-12-16 09:27] LABS: Hematocrit 41.9 % (37.5-50.1); Hemoglobin 13.7 g/dL (12.9-16.9)
[2018-12-16 10:33] LABS: Calcium 9.2 mg/dL (8.6-10.3); Potassium 4.5 mEq/L (3.5-5.1)
[2018-12-16] MEDS: *HR* OxyCODONE Immed Rel 5 MG TABLET PO PRN ×2 (13:14→18:03)
[2018-12-16] MEDS: Ringers Solution, Lactated 1,000 ML IVC SCH (17:55)
[2018-12-17] MEDS: *HR* OxyCODONE Immed Rel 5 MG TABLET PO PRN (03:16)
[2018-12-17] MEDS: *HR* Enoxaparin 30 MG/0.3 ML SYRINGE SQ SCH (05:56)
[2018-12-17] MEDS: Tiotropium 18 MCG inhalation IH SCH (07:53)
[2018-12-17] MEDS: Budesonide/Formoterol 80/4.5 1 PUFF INH IH SCH (07:53)
[2018-12-17] MEDS: Nicotine 21 MG PATCH.TD24 TD SCH (07:58)
[2018-12-17] MEDS: *HR* Ticagrelor 90 MG TABLET PO SCH (07:59)
[2018-12-17] MEDS: Metoprolol XL (24 HR) Succ 25 MG TAB.ER.24H PO SCH (07:59)
[2018-12-17] MEDS: traMADol 50 MG TABLET PO PRN ×2 (08:03→14:09)
[2018-12-17 10:59] VITALS: BP 121/75
== END 2018-12-17 14:50 | disposition home or self-care (01) | DRG 483 ==
LOC: SAMDAY 13:09 → 3NENU 17:15
PROVIDERS: ADMIT Orthopaedic Surgery; ATTEND Orthopaedic Surgery